=== PATIENT | male | born 1985 | race Caucasian/White ===

== ENCOUNTER 2021-01-17 23:59 | Emergency (ER) | payer BC, SELFPAY ==
[2021-01-17 23:55] VITALS: BP 137/86; PULSE 86; RESP 14; TEMP 36.6; O2SAT 97; BMI 25.0
[2021-01-18] VITALS (9 sets, daily range): BP systolic 106–137; BP diastolic 64–92; PULSE 67–93; RESP 14; TEMP 36.6; O2SAT 93–98
--- NOTE | 2021-01-18 00:02 | XR_ITS ---
PROCEDURE: XR CHEST AP CLINICAL HISTORY: seizure Trauma protocol, pain, injury COMPARISON: No exams were available for comparison FINDINGS: The cardiomediastinal silhouette and pulmonary vascularity are within normal limits. The lungs are clear without infiltrates, suspicious nodules, or pleural effusions. Neurostimulator device noted with the generator in the left apex and the leads in the left lower cervical region.. No acute bony findings. IMPRESSION: No acute findings. Dictated by: Ezequiel Hammer MD 01/18/2021 05:15 Ezequiel Hammer MD in [facility] 01/18/2021 05:15
--- NOTE | 2021-01-18 00:02 | XR_ITS ---
PROCEDURE: XR PELVIS 1-2V CLINICAL INDICATION: seizure Trauma protocol, pain, injury COMPARISON: No exams were available for comparison TECHNIQUE: XR Pelvis AP View FINDINGS: No fracture or dislocation is evident. No significant degenerative change. No lytic or blastic change. IMPRESSION: No acute findings. Dictated by: Ezequiel Hammer MD 01/18/2021 05:14 Ezequiel Hammer MD in [facility] 01/18/2021 05:14
--- NOTE | 2021-01-18 00:02 | CT_ITS ---
PROCEDURE: CT CERVICAL SPINE WO CON CLINICAL INDICATION: seizure Neck injury with pain, contusion/abrasion or hematoma, cervical sprain/strain the COMPARISON: CT CSWO CT CERVICAL SPINE W/O CONT from 10/20/2016 TECHNIQUE: Axial images obtained with sagittal and coronal reformats. All CT scans at the facility use one or more dose reduction, viz: automated exposure control, ma/kV adjustment per patient size (including targeted exams where dose is matched to indication, i.e. head), or iterative reconstruction technique. Axial spiral CT scanning performed of the cervical spine beginning at the base of the skull and continuing to the upper T-spine. 3-D multiplanar reconstruction with 3-D manipulation of volumetric data set in image rendering was completed by the radiologist and/or technologist with the supervision of the radiologist on independent workstation. FINDINGS: No fracture nor subluxation is evident. Normal prevertebral soft tissues. Facets, neural foramen and vertebral bodies intact and unremarkable. Normal C1/C2 relationships. Apices of lungs are clear with no acute findings. Electrodes are present in the lower neck on the left. IMPRESSION: Cervical spine intact with no fracture nor subluxation. Dictated by: Ezequiel Hammer MD 01/18/2021 06:42 Ezequiel Hammer MD in [facility] 01/18/2021 06:42
--- NOTE | 2021-01-18 00:02 | CT_ITS ---
PROCEDURE: CT HEAD/BRAIN WO CON CLINICAL INDICATION: seizure Seizure with head injury COMPARISON: CT HDWO CT HEAD W/O CONTRAST from 03/24/2017 TECHNIQUE: Axial images obtained. All CT scans at the facility use one or more dose reduction, viz: automated exposure control, ma/kV adjustment per patient size (including targeted exams where dose is matched to indication, i.e. head), or iterative reconstruction technique. FINDINGS: No midline shift or mass effect is evident. Postsurgical changes are present involving the calvarium. Scattered areas of gas in the subdural and subarachnoid spaces.. There are encephalomalacia changes in the inferior aspect of the left frontal lobe along the sphenoid wing region. Bilateral frontal and parietal craniotomy changes. No mastoid effusion or sinus air-fluid level. No acute intracranial hemorrhage. IMPRESSION: 1. Scattered areas of gas within the subdural and subarachnoid region/pneumocephalus presumed to be from prior cranial surgery. Postsurgical changes are present involving the frontal and parietal bones bilaterally. Please correlate with clinical parameters. Correlation with other postoperative exams suggested. None are available at this institution. 2. No midline shift or intracranial hemorrhage apparent. Dictated by: Ezequiel Hammer MD 01/18/2021 06:38 Ezequiel Hammer MD in [facility] 01/18/2021 06:38
[2021-01-18 00:12] LABS: Basophils # 0.1 K/mm3 (0-0.2); Basophils % 0.5 % (0.1-2.0); Eosinophils # 0.1 K/mm3 (0.0-0.4); Hematocrit 42.6 % (42.0-52.0); Hemoglobin 14.4 g/dL (14.1-18.0); Lymphocytes # 2.2 K/mm3 (0.7-4.5); Lymphocytes % 21.3 % (10-50); Mean Corpuscular HGB Conc 33.9 g/dL (31.8-35.4); Mean Corpuscular Hemoglobin 29.9 pg (27.0-31.2); Mean Corpuscular Volume 88.2 fl (80-94); Mean Platelet Volume 8.8 fl (7.4-10.4); Monocytes # 0.5 K/mm3 (0.1-1.0); Monocytes % 5.1 % (1.7-9.3); Neutrophils # 7.6 K/mm3 (1.8-7.8); Neutrophils % 72.2 % (37.0-80.0); Platelet Count 267 K/mm3 (142-424); Red Blood Count 4.83 M/mm3 (4.60-6.20); Red Cell Distribution Width 12.9 % (11.5-17.5); White Blood Count 10.5 K/mm3 (4.8-10.8)
[2021-01-18 00:14] LABS: Chloride 103 mmol/L (98-107); Potassium 4.4 mmoL/L (3.5-5.1); Sodium 139 mmol/L (136-145)
[2021-01-18 00:17] LABS: Alanine Aminotransferase 38 U/L (12-78); Albumin Level 4.9 g/dl (3.5-5.0); Albumin/Globulin Ratio 2.2 (1.1-1.8); Alkaline Phosphatase 115 U/L (38-126); Anion Gap 22.4 mEq/L (5-15); Aspartate Amino Transferase 29 U/L (17-59); Bilirubin,Total 0.3 mg/dl (0.2-1.3); Blood Urea Nitrogen 9 mg/dl (9-20); Carbon Dioxide 18 mmol/L (22.0-30.0); Creatinine Clearance Estimated 107 mL/min (50-200); Estimated Glomerular Filt Rate 86 ml/min (>60); GFR (African American) 103 ML/MIN (>60); Globulin 2.2 g/dL (1.3-3.2); Glucose 113 mg/dl (74-100); Total Protein,Serum 7.1 g/dl (6.3-8.2)
[2021-01-18 00:56] LABS: Erythrocyte Sedimentation Rate 15 mm/hr (0-15)
--- NOTE | 2021-01-18 01:05 | HMH.EDSEIZ ---
ED Disposition Clinical Impression: Generalized seizure Disposition: Home, Self-Care Condition on Discharge: Good Instructions: DI for Seizure Disorder -- Adult Additional Instructions: call neuro for follow up Referrals: PCP,No [Primary Care Provider] - - Critical Care Critical Care Time: No Attestation: On 01/17/21, the high probability of a clinically significant, sudden or life threatening deterioration of the following system(s) required my full and direct attention, intervention and personal management. The time I documented below is in addition to time spent performing reported procedures but includes the following listed in this critical care notation. Medical Decision Making - Medical Records Medical records reviewed: Yes: I reviewed the patient's medical records. - Boy Inquiry Pt receiving controlled substance: No Vital Signs: 01/17/21 23:55 01/18/21 00:44 01/18/21 01:00 Temperature 97.8 F Temperature Source Oral Pulse Rate 74 88 Pulse Rate [Right] 86 Respiratory Rate 14 Blood Pressure 137/74 134/92 H Blood Pressure [Right Arm] 137/86 Blood Pressure Mean 107 105 Blood Pressure Mean [Right Arm] 103 02 Sat by Pulse Oximetry 97 97 98 Oxygen Delivery Method Room Air 01/18/21 01:30 01/18/21 02:00 Temperature Temperature Source Pulse Rate 83 93 H Pulse Rate [Right] Respiratory Rate Blood Pressure 131/65 114/64 Blood Pressure [Right Arm] Blood Pressure Mean 87 85 Blood Pressure Mean [Right Arm] 02 Sat by Pulse Oximetry 93 L Oxygen Delivery Method - Lab Data Lab results reviewed: Yes: I reviewed the patient's lab results. Lab Results 01/18/21 00:00: WBC 10.5, RBC 4.83, Hgb 14.4, Hct 42.6, MCV 88.2, MCH 29.9, MCHC 33.9, RDW 12.9, Plt Count 267, MPV 8.8, Neut % (Auto) 72.2, Lymph % (Auto) 21.3, [place] % (Auto) 5.1, Eos % (Auto) 1.0, Baso % (Auto) 0.5, Neut # (Auto) 7.6, Lymph # (Auto) 2.2, [place] # (Auto) 0.5, Eos # (Auto) 0.1, Baso # (Auto) 0.1, ESR 15 01/18/21 00:00: Sodium 139, Potassium 4.4, Chloride 103, Carbon Dioxide 18 L, Anion Gap 22.4 H, BUN 9, Creatinine 1.00, Estimated Creat Clear 107, Estimated GFR 86, Est GFR ( Amer) 103, Glucose 113 H, Calcium 9.0, Total Bilirubin 0.3, AST 29, ALT 38, Alkaline Phosphatase 115, C-Reactive Protein 1.6, Total Protein 7.1, Albumin 4.9, Globulin 2.2, Albumin/Globulin Ratio 2.2 H, Procalcitonin 0.038 Result diagrams: 01/18/21 00:00 01/18/21 00:00 Orders (Tests/Meds): ED MEDICATIONS Generic Name Dose Route Start Last Admin Trade Name Freq PRN Reason Stop Dose Admin Sodium Chloride 1,000 mls @ 999 mls/hr 01/18/21 00:15 01/18/21 00:13 Sod Chlor 0.9% 1000ml Bag IV 01/18/21 01:15 999 mls/hr .[id number] DAKOTAH Administration Discontinued Medications Generic Name Dose Route Start Last Admin Trade Name Freq PRN Reason Stop Dose Admin Ketorolac Tromethamine 30 mg 01/18/21 00:11 01/18/21 00:13 Ketorolac 30mg/Ml Vial IV 01/18/21 00:12 30 mg ONCE ONE Administration Lorazepam 2 mg 01/18/21 01:16 01/18/21 01:18 Lorazepam 2mg/Ml Vial IV 01/18/21 01:17 2 mg ONCE ONE Administration ORDERS Category Date Time Status CT cervical spine wo con Stat Cat Scan 01/18/21 00:[address] head/brain wo con Stat Cat Scan 01/18/21 00:02 Taken XR chest AP Stat Exams 01/18/21 00:02 Taken XR pelvis 1-2V Stat Exams 01/18/21 00:02 Taken Levetiracetam (Keppra) Stat Lab 01/18/21 00:00 Received - Radiology Data #1 Image(s): Chest, Pelvis Image Reviewed: Yes I reviewed the patient's radiology image Preliminary Findings: No Fracture Seen - CT Data CT Scan: Head, C-Spine Time Received: 01:[address] Reviewed: Yes: I have viewed the radiologist's interpretation Preliminary Findings: No Fracture Seen - Physician Consults Physician Consulted: [facility]- neuro[facility]urg Reason -: Pt condition - Reevaluation(s) Time: 01:15 [facility]evaluation #1: [facility]
[2021-01-18 01:18] LABS: Procalcitonin 0.038 ng/mL (0.0-2.0)
--- NOTE | 2021-01-18 01:18 | PC.NURSE ---
pt had active seizure active lasting 15 seconds. pt received 2mg of ativan and pt is resting now
[2021-01-18 01:19] LABS: C-Reactive Protein 1.6 mg/L (0-4)
--- NOTE | 2021-01-18 01:37 | PC.NURSE ---
Dr Haider speaking with [facility] for Neurology consult.
--- NOTE | 2021-01-18 01:40 | PC.NURSE ---
Pt will wake up with stimulation, pt denies any pain and had to be reoriented to place, but appears to be recovering from last seizure.
--- NOTE | 2021-01-18 01:49 | PC.NURSE ---
Dr Haider speaking with Dr Méndez with Neurology.
--- NOTE | 2021-01-18 03:31 | PC.NURSE ---
pt still drowsy observing pt until return to baseline
--- NOTE | 2021-01-18 04:51 | PC.NURSE ---
Pt now awake and states he is ready to go home. Pt's was contacted to come get him.
--- NOTE | 2021-01-18 05:05 | PC.NURSE ---
pt has returned to baseline
[2021-01-25 08:40] LABS: Levetiracetam (Keppra) <1.0 ug/mL (10.0-40.0)
== END 2021-01-18 05:08 | disposition home or self-care (01) ==
PROVIDERS: Emergency Provider Emergency Medicine
DX: R56.9 Unspecified convulsions (principal); F17.210 Nicotine dependence, cigarettes, uncomplicated
CPT/HCPCS: 70450; 71045; 72125; 72170; 80053; 80177; 84145; 85025; 85651; 86140; 96375; 99282

== ENCOUNTER 2021-05-01 00:02 | Emergency (ER) | payer BC, SELFPAY ==
[2021-04-30 23:52] VITALS: BP 132/90; PULSE 82; RESP 17; TEMP 36.8; O2SAT 98; BMI 26.6
[2021-05-01 00:30] VITALS: BP 124/78; PULSE 90; RESP 18; O2SAT 97
--- NOTE | 2021-05-01 00:43 | HMH.EDAMS ---
ED Disposition Clinical Impression: Headache Qualifiers: Headache type: unspecified Headache chronicity pattern: acute headache Intractability: not intractable Qualified Code(s): R51.9 - Headache, unspecified Disposition: Home, Self-Care Condition on Discharge: Good Instructions: DI for Headache Additional Instructions: call pcp in am Referrals: Provider,Referral, [Primary Care Provider] - - Critical Care Critical Care Time: No Attestation: On 05/01/21, the high probability of a clinically significant, sudden or life threatening deterioration of the following system(s) required my full and direct attention, intervention and personal management. The time I documented below is in addition to time spent performing reported procedures but includes the following listed in this critical care notation. Medical Decision Making - Medical Records Medical records reviewed: Yes: I reviewed the patient's medical records. - Boy Inquiry Pt receiving controlled substance: No Vital Signs: 04/30/21 23:52 Temperature 98.2 F Temperature Source Oral Pulse Rate [Right Brachial] 82 Respiratory Rate 17 Blood Pressure [Right Arm] 132/90 Blood Pressure Mean [Right Arm] 104 Blood Pressure Source [Right Arm] Automatic Cuff Blood Pressure Position [Right Arm] Sitting 02 Sat by Pulse Oximetry 98 Oxygen Delivery Method Room Air Medical Decision Narrative: at baseline no w/u indicated Altered Mental Status HPI - General Chief Complaint: Headache Stated Complaint: headache Time Seen by Provider: 05/01/21 00:05 Mode of Arrival: EMS Source of Information: Patient, EMS Limitations: No Limitations Description of Symptoms (Recalled from ER Triage Doc. by RN): headache after yelling with his because he took the family car and went to get her cheetos. is upset with patient because his license has been medically suspended. pt states he couldn't take anything for his headache at home, because all they had was excedrin migraine and he read through his discharge paperwork and was noting that he is not supposed to have acetaminophen. or caffeine. or aspirin. pt has missed his first two follow up appointments after having brain surgery in february of this year. pt is alert, oriented x 4. afebrile. appears of sound mind. able to make needs and decisions known. - History of Present Illness HPI narrative: pt with recent surg for sz and is doing ok - has occ finnegan - was driving tonight -no specific c/o per pt complaint: altered mental status Onset (ago): hour(s) Severity: moderate Context: seizure disorder Associated symptoms: denies other symptoms - Related Data Allergies Allergy/AdvReac Type Severity Reaction Status Date / Time No Known Allergies Allergy Unverified 10/14/17 14:11 [facility] History - Hepatitis A Screen Drug use history?: Yes High risk sexual behaviors?: No History of sexually transmitted infection?: No Currently employed?: No Childcare worker?: No Do you have indoor plumbing?: Yes Do you have electricity?: Yes Attestation statement:: This patient has been screened for Hepatitis A risk factors. I have reviewed the patient's past medical history: Yes - Social History Smoking Status: Current every day smoker # Packs/Day (cigarettes): 1 Alcohol Intake: never Occupational Status: disabled ROS Obtained: Yes All systems reviewed & no additional complaints - Constitutional Constitutional: Denies fever(s) - Eyes Eyes: Denies change in vision - ENT Ears, Nose, Mouth, and Throat: Denies sore throat - Cardiovascular Cardiovascular: Denies chest pain - Respiratory Respiratory: Denies shortness of breath - Gastrointestinal Gastrointestingal: Denies: abdominal pain - Genitourinary Male Genitourinary: Denies hematuria - Musculoskeletal Musculoskeletal: Denies joint pain - Integumentary/Breasts Skin/Breast: Denies rash - Neurologic Neurologic: Reports as per HPI, Denies focal w
[2021-05-01 00:51] VITALS: BP 126/80; PULSE 90; RESP 18; TEMP 36.6; O2SAT 99
== END 2021-05-01 01:06 | disposition home or self-care (01) ==
PROVIDERS: Emergency Provider Emergency Medicine
DX: G40.909 Epilepsy, unspecified, not intractable, without status epilepticus (principal); F17.210 Nicotine dependence, cigarettes, uncomplicated
CPT/HCPCS: 99281